=== PATIENT | female | born 1955 | race Caucasian/White ===

== ENCOUNTER 2018-10-10 17:10 | Outpatient (CLI) | payer MEDICAID ==
--- NOTE | 2018-10-10 17:26 | RAD ---
FEXAM: Left shoulder radiographs 3 views PROVIDED CLINICAL HISTORY: Chronic shoulder pain COMPARISON: None FINDINGS: There is no evidence for fracture or other acute osseous abnormality. Subacromial space appears prese rved. Glenohumeral relationship appears normal. Bone island seen within the humeral head. Visualized left lung field appears clear. Acromioclavicular joint appears unremarkable. IMPRESSION: No evidence for an acute osseous abnormality or significant arthropathy.
== END 2018-10-10 17:11 | disposition home or self-care (01) ==
LOC: MADRAD 17:10
PROVIDERS: ATTEND Family Medicine
DX: M25.512 Pain in left shoulder (principal)

== ENCOUNTER 2019-04-12 17:20 | Outpatient (CLI) | payer OTHER ==
--- NOTE | 2019-04-12 17:38 | RAD ---
EXAM: Right shoulder: 3 views INDICATIONS: Pain COMPARISON: None. FINDINGS: No fracture or dislocation. AC joint normally aligned. Minimal degenerative change. IMPRESSION: No acute finding
--- NOTE | 2019-04-12 17:56 | RAD ---
EXAM: Cervical spine: 5 views INDICATIONS: Cervical radicular pain COMPARISON: None. FINDINGS: Cervical vertebral maintain normal height through C5. C6, C7, and T1 levels are not evaluat ed on the lateral view. Foramina appear open on the oblique projections. No abnormality identified. IMPRESSION: Unremarkable cervical spine. Lower cervical spine not adequately evaluated in the lateral view.
== END 2019-04-12 17:21 | disposition home or self-care (01) ==
LOC: MADRAD 17:20
PROVIDERS: ATTEND Family Medicine
DX: M54.12 Radiculopathy, cervical region (principal)
CPT/HCPCS: 72050

== ENCOUNTER 2019-08-16 17:06 | Emergency (ER) | payer OTHER ==
[2019-08-16] MEDS ORDERED: Naloxone HCl 0.4 mg/ml Vial ONE ×2 (17:38→18:29)
--- NOTE | 2019-08-16 17:48 | RAD ---
XR Chest 1 View Portable HISTORY: Shortness of breath cough, wheezing, COPD COMPARISON: 10/02/2014 FINDINGS: The heart size is normal. Changes of COPD are again seen. The lungs are well expanded witho ut focal areas of consolidation, pneumothorax or pleural effusions. IMPRESSION: No radiographic evidence of acute cardiopulmonary process.
[2019-08-16 18:23] LABS: Mean Corpuscular HGB CONC 29.5 g/dL (32.0-36.0); Mean Corpuscular Volume 98.5 fL (78.0-98.0); Mean Platelet Volume 7.8 fL (7.4-10.4); Platelet Count 274 thou/uL (130-400); Red Blood Cell (RBC) Count 3.79 mill/uL (4.20-5.40); White Blood Cell (WBC) Count 9.8 thou/uL (4.8-10.8)
[2019-08-16 18:28] LABS: ALT (SGPT) 21 U/L (8-55); AST (SGOT) 21 U/L (5-34); Alkaline Phosphatase 146 U/L (40-110); Anion Gap 14 mmol/L (10-20); BUN (Urea Nitrogen) 11 mg/dL (9.8-20.1); Bilirubin, Total 0.2 mg/dL (0.2-1.2); Calc. Creatinine Clearance 0 mL/min (70-130); Calcium 9.4 mg/dL (7.8-10.44); Carbon Dioxide 39 mmol/L (23-31); Estimated GFR-MDRD 78; Globulin 3.2 g/dL (2.4-3.5); Glucose 100 mg/dL (80-115); Magnesium 2.1 mg/dL (1.6-2.6); Protein, Total 7.2 g/dL (6.0-8.3)
[2019-08-16] MEDS ORDERED: Dexamethasone 10 MG/ML VIAL ONE (18:29)
[2019-08-16 18:30] LABS: Bilirubin Negative (Negative); Blood, Urine Trace (Negative); Clarity Clear (Clear); Glucose, Urine (Dipstick) Negative (Negative); Leukocyte Negative (Negative); Nitrite Negative (Negative); Protein, Urine (Dipstick) Negative (Neg-Trace); Urobilinogen 0.2 mg/dL (Less than 2)
[2019-08-16 18:36] LABS: Chloride 95 mmol/L (98-107); Potassium 4.2 mmol/L (3.5-5.1); Sodium 144 mmol/L (136-145)
[2019-08-16 18:38] LABS: RBC/HPF 0-3 HPF (0-3); WBC/HPF 0-3 HPF (0-3)
[2019-08-16 18:39] LABS: Bacteria/HPF Rare-Few HPF (None Seen); Mucous/LPF Rare LPF (<2+)
[2019-08-16 18:41] LABS: Amphetamine Not Detected (NotDetected); Barbiturates Screen Not Detected (NotDetected); Benzodiazepine Screen Detected (NotDetected); Cocaine Metabolite Screen Not Detected (NotDetected); Medtox Control Line Valid? VALID (VALID); Methadone Not Detected (NotDetected); Methamphetamine Not Detected (NotDetected); Opiate Screen Not Detected (NotDetected); Oxycodone Screen Not Detected (NotDetected); Phencyclidine (PCP) Not Detected (NotDetected); THC/Cannabinoid Screen Not Detected (NotDetected); Tricyclic Screen Not Detected (NotDetected)
[2019-08-16 18:57] LABS: #Basophils 0.1 thou/uL (0.0-0.2); #Eosinphils 0.5 thou/uL (0.0-0.7); #Lymphocytes 1.9 thou/uL (1.20-3.40); #Monocytes 0.6 thou/uL (0.11-0.59); #Neutrophils 6.8 thou/uL (1.40-6.50); %Basophils 0.8 % (0.0-1.0); %Eosinophils 4.9 % (0.0-10.0); %Lymphocytes 18.9 % (21.0-51.0); %Monocytes 5.6 % (0.0-10.0); %Neutrophils 69.7 % (42.0-75.0); Platelet Morphology Comment Appears Adequate; RBC Morphology Normal
[2019-08-16 19:06] LABS: MDiff Complete? YES
[2019-08-16 19:15] LABS: Base Excess-Venous 13.4 mmol/L (-2.0 to 3.0); Bicarbonate (HCO3v) 45.3 mmol/L (22.0-28.0); CO2 Tension (PvCO2) 100.9 mmHg (40.0-50.0); vO2 Saturation-calc 97.9 % (60.0-85.0)
[2019-08-16 19:16] LABS: Potassium 4.1 mmol/L (3.5-5.1); Sodium 146 mmol/L (138-145)
[2019-08-16 19:17] LABS: Calcium, Ionized 1.17 mmol/L (See Comments:); Chloride 95 mmol/L (98-107); T. Carbon Dioxide 48.4 mmol/L (22.0-28.0)
== END 2019-08-16 19:28 | disposition short-term general hospital (02) ==
LOC: MADERS 17:06
DX: J44.1 Chronic obstructive pulmonary disease with (acute) exacerbation (principal); F13.10 Sedative, hypnotic or anxiolytic abuse, uncomplicated; R06.89 Other abnormalities of breathing; F11.90 Opioid use, unspecified, uncomplicated; F32.9 Major depressive disorder, single episode, unspecified; Z87.891 Personal history of nicotine dependence; Z79.899 Other long term (current) drug therapy
CPT/HCPCS: 71045; 80053; 80306; 81003; 81015; 82330; 82803; 83605; 83735; 83880; 84443; 84484; 85025; 87804; 93005; 94660; 96374; 96375; 96376; J1100; J2310; J7620